=== PATIENT | male | born 1970 | race Caucasian/White ===

== ENCOUNTER 2019-01-19 08:50 | Outpatient (REF) | payer BC, SELFPAY ==
[2019-01-19 13:04] LABS: Calculated LDL 136 mg/dL; Cholesterol 201 mg/dL (50-200); HDL Cholesterol 55 mg/dL (40-60); Triglyceride 54 mg/dL (30-150)
== END 2019-01-19 09:10 ==
LOC: NCHCN 08:50
PROVIDERS: PCP Nurse Practitioner; Visit Provider Nurse Practitioner Family
DX: Z00.00 Encounter for general adult medical examination without abnormal findings (principal)
CPT/HCPCS: 80061

== ENCOUNTER 2020-03-21 13:33 | Outpatient (REF) | payer BC, SELFPAY ==
[2020-03-21 14:49] LABS: CREATININE 1.01 mg/dL (0.70-1.30); Vitamin B12 526 pg/mL (193-986)
[2020-03-22 13:46] LABS: Magnesium 2.1 mg/dL (1.8-2.4)
== END 2020-03-21 13:53 ==
LOC: NCHCN 13:33
PROVIDERS: PCP Nurse Practitioner; Visit Provider Nurse Practitioner Family
DX: Z00.00 Encounter for general adult medical examination without abnormal findings (principal); K30 Functional dyspepsia; R13.10 Dysphagia, unspecified
CPT/HCPCS: 82565; 82607; 83735

== ENCOUNTER 2021-09-04 10:56 | Outpatient (REF) | payer BC, SELFPAY ==
[2021-09-04 16:35] LABS: ALT 32 U/L (16-63); AST 19 U/L (15-37); Albumin 4.5 g/dL (3.4-5.0); Alkaline Phosphatase 48 U/L (46-116); Anion Gap 7.6 mmol/L (3-11); BUN 20 mg/dL (7-18); CO2 28.4 mmol/L (21.0-32.0); Calcium 9.5 mg/dL (8.5-10.1); Chloride 102 mmol/L (98-107); Glucose 98 mg/dL (74-106); Potassium 4.1 mmol/L (3.5-5.1); Sodium 138 mmol/L (136-145)
[2021-09-04 16:47] LABS: Calculated LDL 183 mg/dL (<100); Cholesterol 251 mg/dL (<200); HDL Cholesterol 56 mg/dL (40-60); Triglyceride 60 mg/dL (<150)
[2021-09-04 17:07] LABS: Hemoglobin A1C 5.3 % (<5.7)
[2021-09-04 17:32] LABS: Vitamin D 25 Total 29.7 ng/mL (30-100)
== END 2021-09-04 10:57 | disposition home or self-care (01) ==
LOC: NCHCN 10:56
PROVIDERS: PCP Nurse Practitioner; Visit Provider Nurse Practitioner Family
DX: Z00.00 Encounter for general adult medical examination without abnormal findings (principal); Z13.1 Encounter for screening for diabetes mellitus; Z13.220 Encounter for screening for lipoid disorders; Z13.21 Encounter for screening for nutritional disorder
CPT/HCPCS: 80053; 80061; 82306; 83036

== ENCOUNTER 2024-04-24 10:08 | Outpatient (REF) | payer BC, SELFPAY ==
[2024-04-24 15:07] LABS: ALT 35 U/L (16-63); AST 16 U/L (15-37); Albumin 4.4 g/dL (3.4-5.0); Alkaline Phosphatase 55 U/L (46-116); BUN 18 mg/dL (7-18); Bilirubin, Total 0.78 mg/dL (0.2-1.0); CREATININE 1.1 mg/dL (0.70-1.30); Calcium 9.5 mg/dL (8.5-10.1); Calculated LDL 174 mg/dL (<100); Chloride 106 mmol/L (98-107); Cholesterol 240 mg/dL (<200); Estimated GFR 80.77 (mL/min/1.73m2); Glucose 90 mg/dL (74-106); HDL Cholesterol 50 mg/dL (40-60); Potassium 4.4 mmol/L (3.5-5.1); Sodium 144 mmol/L (136-145); Total Protein 7.6 g/dL (6.4-8.2); Triglyceride 83 mg/dL (<150)
== END 2024-04-24 10:09 | disposition home or self-care (01) ==
LOC: NCHCN 10:08
PROVIDERS: PCP Nurse Practitioner; Visit Provider Nurse Practitioner Family
DX: E78.5 Hyperlipidemia, unspecified (principal)
CPT/HCPCS: 80053; 80061

== ENCOUNTER 2024-10-25 10:03 | Outpatient (CLI) | payer BC, SELFPAY ==
--- NOTE | 2024-10-25 | DI.RAD_ITS ---
Exam(s) XR SHOULDER RT COMPLETE 2+V EXAM: XR SHOULDER RT COMPLETE 2+V CLINICAL HISTORY: PAIN RT SHOULDER M25.511. TECHNIQUE: 2D digital imaging was performed. Five views. COMPARISON: No exams were available for comparison FINDINGS: BONES: No acute fracture is present. No bony destructive lesion is seen. JOINTS: No dislocation present. No significant spurring at the AC joint or glenohumeral joint. Glenohumeral joint space is maintained. SOFT TISSUE: Normal. IMPRESSION: Unremarkable radiographs of the right shoulder. DATA REPOSITORY: RADIATION DOSE DELIVERED:
== END 2024-10-25 10:23 ==
PROVIDERS: PCP Nurse Practitioner; Visit Provider Family Medicine
DX: M25.511 Pain in right shoulder (principal)
CPT/HCPCS: 73030